=== PATIENT | male | born 1940 | race Caucasian/White ===

== ENCOUNTER 2017-05-22 22:13 | Emergency (ER) | payer OTHER ==
[~2017-05-22] VITALS: Ht 170.2 cm; Wt 81.7 kg
--- NOTE | ~2017-05-22 | EKG ---
[address] [place] [address] ELECTROCARDIOGRAM REPORT Name: MO ARVIZU Room #: [id number] Admission: 05/22/17 Attend Phys: Discharge: 05/23/17 Date of : 36 Report #: [id number] THIS REPORT FOR: //name// [facility] ED Test Date: 2017-05-22 Test Time: 23:05:46 Pat Name: MO ARVIZU Department: Room: Gender: M [employer]: Nerissa DE SANTIAGO : 1940 Requested By: Ciara Ibrahim Order Number: [id number] MD: Francisco Gaston Measurements Intervals [place] Rate: 75 P: [place]: QRS: -13 QRSD: 111 T: 157 QT: 415 QTc: 464 Interpretive Statements Atrial fibrillation Inferior infarct, old Anterior infarct, old Lateral leads are also involved Compared to ECG 04/03/2016 09:23:53 No significant changes Electronically Signed On 05-23-2017 6:56:49 CDT by Francisco Gaston [email or web address] <ELECTRONICALLY SIGNED> By: Francisco Gaston MD 05/23/17 0656 04 04 Francisco Gaston MD /CANDELARIA
[~2017-05-22 22:13] MED LIST: ALLEGRA ALLERG180 MG PO; AMOXICILLIN 50500 M1 PO; ASA81BEC PO; ATENOLOL 50 MG50 M1 PO; ATENOLOL PO; AVAPRO75 MG PO; AZOPT OPHTH1 %/10 M1 OP; AZOPT OPHTH1 %/10 M1 OPHTHALMIC; BYSTOLIC 5 MG5 M1 PO; BYSTOLIC10 MG PO; CIPROFLOXIN HC2.5 ML OP; CLARINEX5 MG PO; CLARITIN10 MG PO; COMBIGAN EYE DR10 ML; COMBIGAN EYE DR10 ML OPHTHALMIC; COUMADIN 2.5MG2.5 M1 PO; COUMADIN 3 MG TA3 MG; COUMADIN 5 MG TA5 M1 PO; COUMADIN7.5 MG PO; CYCLOPENTOLA1 %/2 M1 OP; DILTIAZEM ER120 M1 PO; DUREZOL5 ML OP; ENOXAPARIN80 MG/0.8 SUBQ; FISH OIL 1,0001 EAC5 PO; LASIX 20 MG TAB20 MG PO; LEXAPRO 10 MG T10 M1 PO; LIPITOR10 MG PO; LORATIDINE 10 M10 M1 PO; LOVENOX SQ; LUMIGAN5 ML OPHTHALMIC; MAXITROL EYE O3.5 GM OP; MECLIZINE HCL12.5 MG PO; MELATONIN3 MG; MELATONIN5 M1 PO; METOPROLOL 50 M50 M1 PO; MULTAQ400 MG PO; MULTIVITAMINS PO; NEXIUM20 MG PO; NORCO 5-325 TA1 EACH PO; TYLENOL325 MG PO; VERAPAMIL ER120 MG PO; ZOCOR 20 MG TAB20 M1 PO; ZYRTEC10 M5 PO
[2017-05-22 23:37] LABS: HEMATOCRIT 47.7 % (42.0-52.0); HEMOGLOBIN 15.8 gm/dL (14.0-18.0); MCH 31.4 pg (26.0-34.0); MCHC 33.2 g/dL (28.0-37.0); MCV 94.5 fL (80.0-100.0); PLATELET COUNT 290 thou/uL (150-400); RBC 5.05 mil/uL (4.50-6.00); RDW 15.5 % (10.5-14.5); WBC 11.7 thou/uL (4.0-11.0)
[2017-05-22 23:38] LABS: MANUAL DIFF YES
[2017-05-22 23:48] LABS: INR 2.4; PROTIME 24.1 Seconds (9.3-11.4)
[2017-05-22 23:56] LABS: CALCIUM 9.3 mg/dL (8.5-10.1); CREATININE 1.2 mg/dL (0.7-1.3); POTASSIUM 4.1 mmol/L (3.5-5.1)
[2017-05-23 00:28] LABS: ABSOLUTE NEUTROPHILS 7.3 thou/uL (1.4-8.2); ATYPICAL LYMPHS 6 %; TOTAL CELL COUNT 100
== END 2017-05-23 01:05 | disposition home or self-care (01) ==
LOC: ER 22:13
PROVIDERS: Emergency Medicine
DX: S01.01XA Laceration without foreign body of scalp, initial encounter (principal); I11.0 Hypertensive heart disease with heart failure; I50.9 Heart failure, unspecified; K21.9 Gastro-esophageal reflux disease without esophagitis; I48.91 Unspecified atrial fibrillation; E78.00 Pure hypercholesterolemia, unspecified; F10.99 Alcohol use, unspecified with unspecified alcohol-induced disorder; Z86.73 Personal history of transient ischemic attack (TIA), and cerebral infarction without residual deficits; Z87.442 Personal history of urinary calculi; Z90.81 Acquired absence of spleen; Z98.890 Other specified postprocedural states; Z79.01 Long term (current) use of anticoagulants; Z88.8 Allergy status to other drugs, medicaments and biological substances; W18.09XA Striking against other object with subsequent fall, initial encounter; Y93.89 Activity, other specified; Y92.89 Other specified places as the place of occurrence of the external cause; Y99.8 Other external cause status

== ENCOUNTER → 2020-05-02 | Outpatient (CLI) | payer OTHER | LOC: SJCVC 14:26 | PROVIDERS: ATTEND Internal Medicine Cardiovascular Disease | DX: I48.91 Unspecified atrial fibrillation (principal); R94.31 Abnormal electrocardiogram [ECG] [EKG]; E78.00 Pure hypercholesterolemia, unspecified; I12.9 Hypertensive chronic kidney disease with stage 1 through stage 4 chronic kidney disease, or unspecified chronic kidney disease; N18.30 Chronic kidney disease, stage 3 unspecified; D50.9 Iron deficiency anemia, unspecified; Z95.2 Presence of prosthetic heart valve; Z79.01 Long term (current) use of anticoagulants; Z86.73 Personal history of transient ischemic attack (TIA), and cerebral infarction without residual deficits; Z79.899 Other long term (current) drug therapy; Z82.49 Family history of ischemic heart disease and other diseases of the circulatory system; Z87.891 Personal history of nicotine dependence ==

== ENCOUNTER → 2020-12-05 | Outpatient (CLI) | payer OTHER | LOC: SJCVCIMAG 08:50 | PROVIDERS: ATTEND Internal Medicine Cardiovascular Disease | DX: I07.1 Rheumatic tricuspid insufficiency (principal); R94.31 Abnormal electrocardiogram [ECG] [EKG]; I13.10 Hypertensive heart and chronic kidney disease without heart failure, with stage 1 through stage 4 chronic kidney disease, or unspecified chronic kidney disease; N18.9 Chronic kidney disease, unspecified; I48.92 Unspecified atrial flutter; I48.91 Unspecified atrial fibrillation; E78.00 Pure hypercholesterolemia, unspecified; I87.2 Venous insufficiency (chronic) (peripheral); R60.9 Edema, unspecified; Z95.2 Presence of prosthetic heart valve; Z88.8 Allergy status to other drugs, medicaments and biological substances; Z79.01 Long term (current) use of anticoagulants; Z79.899 Other long term (current) drug therapy; Z86.73 Personal history of transient ischemic attack (TIA), and cerebral infarction without residual deficits; Z98.890 Other specified postprocedural states; Z87.891 Personal history of nicotine dependence; Z82.49 Family history of ischemic heart disease and other diseases of the circulatory system ==